=== PATIENT | male | born 1950 | race Caucasian/White ===

== ENCOUNTER 2024-01-01 18:31 | Inpatient (IN) | payer MEDICAID ==
[~2024-01-01] VITALS: Ht 165.1 cm; Wt 75.3 kg
[~2024-01-01 18:31] MED LIST: APIX5TAB PO; CLOP-31 MT; FAMO-135 MT; LIP40 PO; METO-396 MT
[2024-01-01 19:03] LABS: CLARITY URINE CLEAR (CLEAR); COLOR URINE YELLOW (YELLOW); GLUCOSE URINE 3+ (NEGATIVE); KETONES URINE NEGATIVE (NEGATIVE); LEUKOCYTE ESTERASE URINE NEGATIVE (NEGATIVE); NITRITE URINE NEGATIVE (NEGATIVE); OCCULT BLOOD URINE NEGATIVE (NEGATIVE); PH URINE 6.5 (4.5-8.0); PROTEIN URINE NEGATIVE (NEGATIVE); SPECIFIC GRAVITY URINE 1.019 (1.005-1.030)
[2024-01-01 19:15] LABS: BACTERIA URINE TRACE; RBC URINE 0-2 /hpf (0-2); SQUAMOUS EPITHELIAL CELL URINE FEW /lpf (RARE/1+); WBC URINE 0-2 /hpf (0-2)
[2024-01-01 19:18] LABS: BASOPHILS % 0.7 % (0.0-2.0); DIFFERENTIAL COMMENT 0; EOSINOPHILS % 1.6 % (0.0-5.0); HEMATOCRIT. 44.3 % (42.0-52.0); HEMOGLOBIN. 14.4 g/dL (14.0-18.0); LYMPHOCYTES % 16.9 % (20.0-50.0); MEAN CORPUSCULAR HGB CONC 32.5 g/dL (31.0-37.0); MEAN CORPUSCULAR VOLUME 76.8 fL (80.0-94.0); MEAN PLATELET VOLUME 8.7 fl (7.4-10.4); MONOCYTES % 7.4 % (2.0-8.0); NEUTROPHILS % 73.4 % (40.0-76.0); PLATELET 212 x1000/uL (130-400); RED BLOOD CELL COUNT 5.78 mill/uL (4.7-6.1); RED CELL DISTRIBUTION WIDTH 15.2 % (11.6-14.6); WHITE BLOOD COUNT 8.4 x1000/uL (4.5-11.0)
[2024-01-01 19:32] LABS: ALANINE AMINOTRANSFERASE 28 IU/L (10-49); ALBUMIN 4.1 g/dL (3.2-4.8); ASPARTATE AMINOTRANSFERASE 36 IU/L (<34); BILIRUBIN TOTAL 2.2 mg/dL (0.1-1.0); CALCIUM 8.9 mg/dL (8.7-10.4); CARBON DIOXIDE 28 mEq/L (21-32); CHLORIDE 103 mEq/L (98-107); CREATININE 1.3 mg/dL (0.6-1.3); POTASSIUM 3.2 mEq/L (3.5-5.1); PROTEIN TOTAL 7.8 g/dL (6.0-8.3); SODIUM 138 mEq/L (136-145); UREA NITROGEN BLOOD 15 mg/dL (9-23)
[2024-01-01 19:33] LABS: GLUCOSE 286 mg/dL (70-105)
[2024-01-01 19:44] LABS: TROPONIN I HIGH SENSITIVITY 107 ng/L (3.0-53)
[2024-01-01] MEDS: ONDANSETRON HCL 4MG/2ML INJ IV ONE (23:35)
[2024-01-01] MEDS: MORPHINE SULFATE 4 MG/ML INJ (FOR IV/IM USE) IV ONE (23:36)
[2024-01-01] MEDS: SODIUM CHLORIDE 0.9% 1,000 ML IV ONE (23:36)
[2024-01-02 02:54] VITALS: BP 108/81; PULSE 103; RESP 20; TEMP 98.1
[2024-01-02] MEDS ORDERED: ONDANSETRON HCL 4MG/2ML INJ IV PRN (04:00)
[2024-01-02] MEDS ORDERED: HYDROCODONE/ACETAMINOPHEN 5/325MG TABLET PO PRN (04:00)
[2024-01-02] MEDS ORDERED: NALOXONE HCL 0.4MG/ML VIAL IV PRN (04:15)
[2024-01-02] MEDS ORDERED: DEXTROSE 50% WATER 50ML SYRINGE IV PRN (04:15)
[2024-01-02 08:00] VITALS: BP 108/78; PULSE 120; RESP 18; TEMP 97.7
[2024-01-02] MEDS: INSULIN LISPRO 100 UNITS/ML SUBCUT SCH (08:20)
[2024-01-02] MEDS: BLOOD SUGAR DIAGNOSTIC STRIP TEST SCH (08:39)
[2024-01-02] MEDS: METOPROLOL SUCCINATE 50MG ER TABLET PO SCH (08:51)
[2024-01-02] MEDS: CLOPIDOGREL 75MG TABLET PO SCH (08:55)
[2024-01-02] MEDS: FAMOTIDINE 20MG TABLET PO SCH (08:56)
[2024-01-02] MEDS: APIXABAN 5 MG TABLET PO SCH (08:56)
[2024-01-02] MEDS ORDERED: IOHEXOL-300 100 ML BOTTLE ONE (10:20)
[2024-01-02 10:24] LABS: BASOPHILS % 0.7 % (0.0-2.0); DIFFERENTIAL COMMENT 0; EOSINOPHILS % 1.4 % (0.0-5.0); HEMATOCRIT. 45.2 % (42.0-52.0); LYMPHOCYTES % 12.2 % (20.0-50.0); MEAN CORPUSCULAR HEMOGLOBIN 25.2 pg (28.0-32.0); MEAN CORPUSCULAR HGB CONC 33.1 g/dL (31.0-37.0); MEAN CORPUSCULAR VOLUME 76.1 fL (80.0-94.0); MEAN PLATELET VOLUME 8.8 fl (7.4-10.4); MONOCYTES % 7.7 % (2.0-8.0); PLATELET 179 x1000/uL (130-400); RED BLOOD CELL COUNT 5.94 mill/uL (4.7-6.1); RED CELL DISTRIBUTION WIDTH 15.1 % (11.6-14.6); WHITE BLOOD COUNT 10.5 x1000/uL (4.5-11.0)
[2024-01-02 10:26] LABS: ALANINE AMINOTRANSFERASE 22 IU/L (10-49); ALBUMIN 3.9 g/dL (3.2-4.8); ASPARTATE AMINOTRANSFERASE 28 IU/L (<34); BILIRUBIN DIRECT 1.1 mg/dL (<=3.0); BILIRUBIN TOTAL 2.8 mg/dL (0.1-1.0); CARBON DIOXIDE 28 mEq/L (21-32); CHLORIDE 104 mEq/L (98-107); CREATININE 1.1 mg/dL (0.6-1.3); GLUCOSE 176 mg/dL (70-105); POTASSIUM 3.7 mEq/L (3.5-5.1); PROTEIN TOTAL 6.9 g/dL (6.0-8.3); SODIUM 139 mEq/L (136-145); UREA NITROGEN BLOOD 11 mg/dL (9-23)
[2024-01-02 12:00] VITALS: BP 96/44; PULSE 118; RESP 18; TEMP 97.8
[2024-01-02 16:00] VITALS: BP 95/69; PULSE 104; RESP 18; TEMP 98.1
[2024-01-02 20:00] VITALS: BP 120/62; PULSE 98; RESP 20; TEMP 98.4
[2024-01-02] MEDS: CEFTRIAXONE 1GM/50ML 50 ML IV SCH (21:03)
[2024-01-02] MEDS: ATORVASTATIN CALCIUM 40MG TABLET PO SCH (21:35)
[2024-01-03] VITALS: BP 118/66; PULSE 79; RESP 18; TEMP 98.4
[2024-01-03 04:00] VITALS: BP 117/77; PULSE 95; RESP 20; TEMP 98.2
[2024-01-03 07:16] LABS: CALCIUM 8.4 mg/dL (8.7-10.4); CARBON DIOXIDE 26 mEq/L (21-32); CHLORIDE 102 mEq/L (98-107); GLUCOSE 119 mg/dL (70-105); POTASSIUM 3.4 mEq/L (3.5-5.1); SODIUM 134 mEq/L (136-145); UREA NITROGEN BLOOD 10 mg/dL (9-23)
[2024-01-03 07:50] LABS: BASOPHILS % 0.8 % (0.0-2.0); DIFFERENTIAL COMMENT 0; EOSINOPHILS % 1.3 % (0.0-5.0); HEMATOCRIT. 37.4 % (42.0-52.0); HEMOGLOBIN. 12.5 g/dL (14.0-18.0); LYMPHOCYTES % 16.6 % (20.0-50.0); MEAN CORPUSCULAR HGB CONC 33.4 g/dL (31.0-37.0); MEAN PLATELET VOLUME 9.1 fl (7.4-10.4); MONOCYTES % 7.3 % (2.0-8.0); PLATELET 169 x1000/uL (130-400); RED BLOOD CELL COUNT 4.99 mill/uL (4.7-6.1); WHITE BLOOD COUNT 8.6 x1000/uL (4.5-11.0)
[2024-01-03 08:00] VITALS: BP 117/72; PULSE 113; RESP 20; TEMP 98.1
[2024-01-03 12:00] VITALS: BP 110/59; PULSE 94; RESP 20; TEMP 98.1
[2024-01-03 16:00] VITALS: BP 104/60; PULSE 106; RESP 18; RESP 20; TEMP 97.6
[2024-01-03 20:00] VITALS: BP 105/63; PULSE 108; RESP 19; TEMP 98.9
[2024-01-04] VITALS: BP 110/74; PULSE 84; RESP 20; TEMP 98.4
[2024-01-04 04:00] VITALS: BP 117/66; PULSE 60; RESP 17; TEMP 97.5
[2024-01-04 07:01] LABS: BASOPHILS % 0.2 % (0.0-2.0); DIFFERENTIAL COMMENT 0; EOSINOPHILS % 4.5 % (0.0-5.0); HEMATOCRIT. 38.8 % (42.0-52.0); LYMPHOCYTES % 20.6 % (20.0-50.0); MEAN CORPUSCULAR HEMOGLOBIN 25.1 pg (28.0-32.0); MEAN CORPUSCULAR HGB CONC 33.6 g/dL (31.0-37.0); MEAN CORPUSCULAR VOLUME 74.8 fL (80.0-94.0); MEAN PLATELET VOLUME 9.3 fl (7.4-10.4); MONOCYTES % 7.1 % (2.0-8.0); NEUTROPHILS % 67.6 % (40.0-76.0); PLATELET 185 x1000/uL (130-400); RED BLOOD CELL COUNT 5.19 mill/uL (4.7-6.1); RED CELL DISTRIBUTION WIDTH 14.9 % (11.6-14.6); WHITE BLOOD COUNT 8.9 x1000/uL (4.5-11.0)
[2024-01-04 08:00] VITALS: BP 121/74; PULSE 101; RESP 20; TEMP 99.3
[2024-01-04 08:08] LABS: CALCIUM 8.9 mg/dL (8.7-10.4); CARBON DIOXIDE 22 mEq/L (21-32); CHLORIDE 103 mEq/L (98-107); CREATININE 1.1 mg/dL (0.6-1.3); GLUCOSE 134 mg/dL (70-105); POTASSIUM 3.7 mEq/L (3.5-5.1); SODIUM 134 mEq/L (136-145); UREA NITROGEN BLOOD 15 mg/dL (9-23)
[2024-01-04 12:00] VITALS: BP 113/75; PULSE 92; RESP 18; TEMP 97.1
[2024-01-04 16:00] VITALS: BP 111/57; PULSE 78; RESP 20; TEMP 97.5
[2024-01-04 20:00] VITALS: BP 116/80; PULSE 52; RESP 18; TEMP 97.6
[2024-01-05] VITALS: BP 92/59; PULSE 57; RESP 20; TEMP 97.3
[2024-01-05 04:00] VITALS: BP 112/70; PULSE 85; RESP 20; TEMP 97.3
[2024-01-05 08:00] VITALS: BP 124/65; PULSE 103; RESP 20; TEMP 97.4
[2024-01-05] MEDS: TAMSULOSIN HCL 0.4MG SR CAPSULE PO SCH (11:59)
[2024-01-05] MEDS: FINASTERIDE 5MG TABLET PO SCH (11:59)
[2024-01-05 12:00] VITALS: BP 109/76; PULSE 100; RESP 20; TEMP 97.6
[2024-01-05] MEDS: GABAPENTIN 100MG CAPSULE PO SCH (14:40)
[2024-01-05 16:00] VITALS: BP 108/62; PULSE 100; RESP 18; TEMP 97.6
[2024-01-05 20:52] VITALS: BP 92/61; PULSE 107; RESP 18; TEMP 97.9
[2024-01-06 00:27] VITALS: BP 114/80; PULSE 104; RESP 18; TEMP 97.2
[2024-01-06 04:37] VITALS: BP 108/75; PULSE 111; RESP 18; TEMP 97.7
[2024-01-06 07:11] LABS: CALCIUM 8.8 mg/dL (8.7-10.4); CARBON DIOXIDE 21 mEq/L (21-32); CHLORIDE 104 mEq/L (98-107); GLUCOSE 183 mg/dL (70-105); SODIUM 134 mEq/L (136-145); UREA NITROGEN BLOOD 17 mg/dL (9-23)
[2024-01-06 08:00] VITALS: BP 135/85; PULSE 89; RESP 20; TEMP 97
[2024-01-06 12:00] VITALS: BP 107/64; PULSE 88; RESP 20; TEMP 97.4
[2024-01-06] MEDS ORDERED: TAMS-11 PO (12:54)
[2024-01-06] MEDS ORDERED: GABA-529 PO (12:54)
[2024-01-06] MEDS ORDERED: FINA5TAB11 PO (12:54)
[2024-01-06 12:59] VITALS: BP 107/64; PULSE 88; TEMP 97.4; O2SAT 99
[2024-02-13] MEDS ORDERED: METO-385 PO (10:17)
[2024-02-13] MEDS ORDERED: ONDA4TAB50 PO (10:17)
[2024-02-13] MEDS ORDERED: FURO80TA87 PO (10:17)
[2024-02-13] MEDS ORDERED: DIGO-34 PO (10:17)
[2024-02-13] MEDS ORDERED: OMEP20TA23 PO (10:17)
[2024-02-14] MEDS ORDERED: AMI2 PO (07:16)
[2024-02-14] MEDS ORDERED: METO-411 MT (07:16)
== END 2024-01-06 18:04 | disposition home or self-care (01) | DRG 500 ==
LOC: ER 18:31 → 8WST 23:22
PROVIDERS: ADMIT Family Medicine Adult Medicine; ATTEND Family Medicine Adult Medicine
DX: C61 Malignant neoplasm of prostate (principal); C79.51 Secondary malignant neoplasm of bone; R65.10 Systemic inflammatory response syndrome (SIRS) of non-infectious origin without acute organ dysfunction; N12 Tubulo-interstitial nephritis, not specified as acute or chronic; N13.39 Other hydronephrosis; N40.0 Benign prostatic hyperplasia without lower urinary tract symptoms; E11.9 Type 2 diabetes mellitus without complications; I10 Essential (primary) hypertension; R11.2 Nausea with vomiting, unspecified; E87.6 Hypokalemia; R31.0 Gross hematuria; I48.91 Unspecified atrial fibrillation; I25.10 Atherosclerotic heart disease of native coronary artery without angina pectoris; N32.0 Bladder-neck obstruction; Z95.5 Presence of coronary angioplasty implant and graft; Z79.01 Long term (current) use of anticoagulants
CPT/HCPCS: 36415; 71045; 74177; 76700; 80048; 80053; 80076; 81003; 82962; 83036; 83605; 84153; 84484; 85025; 93005; 93923; 93970; 99285; C1893; J0696; J1815; J2270; J2405; J7030; Q9967